=== PATIENT | male | born 1960 | race Caucasian/White ===

== ENCOUNTER 2022-12-20 19:09 | Emergency (ER) | payer BC ==
[2022-12-20] MEDS ORDERED: Diphtheria,Pertussis(Acell),Tetanus Vaccine 0.5 ML Syringe IM ONE (20:03)
[2022-12-20] MEDS ORDERED: Bacitracin Oint 1 GM U/D Packet TOP ONE (20:03)
[2022-12-20] MEDS ORDERED: Lidocaine 1% with EPINEPHrine 1:100,000 50 ML MDV SUBCUT ONE (20:04)
== END 2022-12-20 21:30 | disposition home or self-care (01) ==
LOC: JP.ED 19:09
DX: S51.812A Laceration without foreign body of left forearm, initial encounter (principal); R07.1 Chest pain on breathing; Z23 Encounter for immunization; W25.XXXA Contact with sharp glass, initial encounter
CPT/HCPCS: 12004; 71046; 71046-26; 90471; 90715; 99283-25